=== PATIENT | male | born 2000 ===

== ENCOUNTER 2021-12-18 17:05 | Emergency (ER) | payer OTHER, SELFPAY ==
[2021-12-18 17:09] VITALS: BP 154/87; PULSE 92; RESP 14; TEMP 36.8; O2SAT 98
--- NOTE | 2021-12-18 17:30 | DI.CT_ITS ---
Exam(s) CT HEAD WO EXAM: CT HEAD WO CLINICAL HISTORY: fall skiing, hit head. TECHNIQUE: Imaging Protocol: Axial computed tomography images with coronal and sagittal reformatted images were created and reviewed COMPARISON: No exams were available for comparison FINDINGS: Ventricles and Extra axial spaces: Normal in size and morphology for the patient's age. Hemorrhage: None. Cerebral parenchyma: Normal. Midline shift: None. Brainstem/Cerebellum: Normal. Calvarium: Normal. Visualized Paranasal sinuses/Mastoids: Clear mucous retention cyst right maxillary sinus. Bony septa in both maxillary sinuses. Soft Tissues: Soft tissue swelling left frontal region. Soft tissue swelling around the nose. Minimally displaced nasal fractures and minimally displaced fr acture of the anterior nasal septum.. No orbital fracture. IMPRESSION: No acute intracranial process.Nasal fractures. RADIATION DOSE DELIVERED: 834.89mGy.cm Total DLP DATA REPOSITORY: All CT scans at this facility are submitted to the National Radiology Data Registry (NRDR) Dose Index Registry (DIR) with the [employer] ([employer]). RADIATION OPTIMIZATION: All CT scans at this facility use at least one of these dose optimization te chniques: automated exposure control; mA and/or kV adjustment per patient size (includes targeted exa ms where dose is matched to clinical indication); or iterative reconstruction.
--- NOTE | 2021-12-18 18:18 | DI.VRAD_ITS ---
Addendum created by Axel Swift MD on 12/18/2021 6:44:20 PM EST: There is a nondisplaced nasal bone fracture, best seen on sagittal image 47, series 6. There is mild comminution around the inferior aspect of the fracture, as seen around axial image 6, series 3. There is also a nondisplaced fracture of the anterior aspect of the bony septum in this region best seen on image 7, series 3. There is mild soft tissue swelling superficial to the nasal bone, without defined hematoma. Findings were discussed with JANELLE ALBERTS at 12/18/2021 6:43 PM EST. Initial report created on 12/18/2021 6:16:53 PM EST: PROCEDURE INFORMATION: Exam: CT Head Without Contrast Exam date and time: 12/18/2021 5:36 PM Age: 20 years old Clinical indication: Injury or trauma; Fall; Blunt trauma (contusions or hematomas); Consciousness not specified; Injury date: 12/18/21; Injury details: Ski injury TECHNIQUE: Imaging protocol: Computed tomography of the head without contrast. Radiation optimization: All CT scans at this facility use at least one of these dose optimization techniques: automated exposure control; mA and/or kV adjustment per patient size (includes targeted exams where dose is matched to clinical indication); or iterative reconstruction. COMPARISON: No relevant prior studies available. FINDINGS: Brain: There is no evidence for acute intra-axial or extra-axial hemorrhage. There is no intracranial mass or mass effect. The basilar cisterns are patent. There is normal leon-white differentiation throughout the brain. There is no CT evidence of acute cortical infarct. Cerebral ventricles: The ventricles, cisterns and sulci are normal in size for the patient's age. Paranasal sinuses: There is an 8 mm soft tissue density structure within the anterior aspect of the right maxillary sinus suggesting a small mucous retention cyst. Mastoid air cells: Visualized mastoid air cells are well aerated. Bones/joints: No acute fractures are identified. Soft tissues: There is a focal region of mild soft tissue swelling anterior to the left frontal skull to the left of midline around image 25, series 2, suggesting mild soft tissue contusion. No defined subgaleal hematoma is identified. IMPRESSION: 1. No acute intracranial process identified. 2. Small soft tissue contusion in the anterior left frontal region. No fractures identified Dictated and Authenticated by: Axel Swift MD. Ordering:RITCHIE Martin MD
--- NOTE | 2021-12-18 18:27 | ED.GENADUL_ITS ---
Discharge Plan Disposition Patient Disposition: HOME Condition: Stable Discharge Details Clinical Impression: Nasal bone fracture, Head injury, Fall from snow-skis, initial encounter Primary Care Provider: Unknown,Unknown ED Provider: Mario Schultz Home Meds and New Rx's Prescriptions: No Action No Known Home Meds RF: 0 Discharge Instructions Instructions: Nasal Fracture (ED), Concussion (ED) Additional Instructions: Please avoid consuming alcohol and rest over the next few days. Please take acetaminophen (tylenol) - 650mg every 6 hours by mouth as needed for pain. Replace your helmet. There are likely microfractures in the material and helmet were not provide adequate protection with impact. Please contact your primary care physician to arrange follow-up. Return to the ER immediately for any worsening or new concerning symptoms. Medical Decision Making 20-year-old male who was skiing and lost control and went [place], sustained head injury, did not lose consciousness. Injury happened approximately 5 hours ago. Patient subsequently consumed alcohol and then recently vomited. He denies headache. Patient is neurologically intact. Saturating well no respiratory distress with clear lung sounds. Hemodynamically stable. Abdominal exam is benign. Patient did have trauma to the bridge of his nose and I am concerned about nasal bone fracture. Consider also acute intracranial traumatic hemorrhage given mechanism of injury and vomiting. CT of the head was reviewed and interpreted by radiology: No intracranial hemorrhage, nasal bone fracture with no septal hematoma. Please see report below. Results were discussed with the patient. Plan for discharge with outpatient follow-up. Usual customary discharge instructions were reviewed with the patient. Imaging Data Radiologic Study: Imaging: CT Scan Radiologist's impression: Findings were discussed with MARIO SCHULTZ at 12/18/2021 6:43 PM EST. Initial report created on 12/18/2021 6:16:53 PM EST: PROCEDURE INFORMATION: Exam: CT Head Without Contrast Exam date and time: 12/18/2021 5:36 PM Age: 20 years old Clinical indication: Injury or trauma; Fall; Blunt trauma (contusions or hematomas); Consciousness not specified; Injury date: 12/18/21; Injury details: Ski injury TECHNIQUE: Imaging protocol: Computed tomography of the head without contrast. Radiation optimization: All CT scans at this facility use at least one of these dose optimization techniques: automated exposure control; mA and/or kV adjustment per patient size (includes targeted exams where dose is matched to clinical indication); or iterative reconstruction. COMPARISON: No relevant prior studies available. FINDINGS: Brain: There is no evidence for acute intra-axial or extra-axial hemorrhage. There is no intracranial mass or mass effect. The basilar cisterns are patent. There is normal leon-white differentiation throughout the brain. There is no CT evidence of acute cortical infarct. Cerebral ventricles: The ventricles, cisterns and sulci are normal in size for the patient's age. Paranasal sinuses: There is an 8 mm soft tissue density structure within the anterior aspect of the right maxillary sinus suggesting a small mucous retention cyst. Mastoid air cells: Visualized mastoid air cells are well aerated. Bones/joints: No acute fractures are identified. Soft tissues: There is a focal region of mild soft tissue swelling anterior to the left frontal skull to the left of midline around image 25, series 2, suggesting mild soft tissue contusion. No defined subgaleal hematoma is identified. IMPRESSION: 1. No acute intracranial process identified. 2. Small soft tissue contusion in the anterior left frontal region. No fractures identified HPI General Mode of arrival: ambulatory . Date/Time Provider Initiated Documentation: 12/18/21 17:22 . Limitations to Documentation: no limitations . Information obtained by: patient . HPI Narrative: 20-year-old male, otherwise healthy, presents with chief complaint of head injury. Patient notes he was skiing approximately 5 hours ago and lost control tumbled off the trail [place]. He does not recall striking a tree directly but thinks he gland a tree with his face. He has pain bridge of his nose. He sustained abrasion to his face. He denies headache or loss of consciousness. Just prior to arrival he stood up to get out of the car and vomited. He notes he has been drinking alcohol this afternoon. He denies nausea now. No visual changes. No numbness or tingling. He has no chest pain or shortness of breath. No abdominal pain. Related Data Home Medications Medication Instructions Recorded Confirmed Unknown [No Known Home Meds] 12/18/21 12/18/21 Allergies Allergy/AdvReac Type Severity Reaction Status Date / Time No Known Allergies Allergy Unverified 12/18/21 17:11 General Stated Complaint: HeadInjury VICKY: 2 Review of Systems All systems reviewed & are unremarkable except as noted in HPI and below Cardiovascular Cardiovascular: Denies dyspnea Respiratory Respiratory: Denies dyspnea Gastrointestinal Gastrointestinal: Denies abdominal pain Musculoskeletal Musculoskeletal: Denies back pain Comments: No neck pain PFSH All Active Problems Nasal bone fracture (Acute) Head injury (Acute) Fall from snow-skis, initial encounter (Acute) Social History Smoking/Tobacco Use Status: Current every day Tobacco Type: e-cigarettes Smoking risk assessment performed?: Yes Alcohol Intake: current Alcohol Intake frequency: a few times a week Alcohol type: wine and hard liquor Drug use: Daily Substance use type: marijuana Do you feel safe at home: Yes Do you feel safe in your relationship?: Yes Exam Const General: cooperative and no acute distress HENMT Head: no Monae's sign, no hematomas, no occipital foramen tenderness, no raccoon eyes and No periorbital ecchymosis Ears: TM's normal bilaterally General nose exam: septum normal Face and sinus: tenderness (Bridge of nose with swelling) Mouth: moist mucous membranes Teeth and gingiva: dentition normal Throat: posterior oropharynx normal Eyes EOM: EOM intact bilaterally Neck Neck: trachea midline and supple Resp Auscultation: clear to auscultation bilaterally, no rales, no rhonchi and no wheezes Cardio Rate: regular rate and not tachycardic Rhythm: regular rhythm GI Inspection: normal to inspection and no abdominal wall ecchymosis Palpation: soft, not firm, no guarding, no masses, not rigid and nontender Auscultation: normal bowel sounds Back/Spine/Pelvis Cervical Spine: cervical ROM normal, No cervical spinal tenderness and No step off deformity Thoracic/Lumbar Spine: thoracic and lumbar spine normal to inspection Skin General skin exam: no rashes or lesions noted Neuro General: patient alert, patient awake, patient oriented x3 and tone normal Psych Appearance: grossly normal Mental Status: mental status grossly normal Speech and Movement: speech and movement normal Course Vital Signs Vital signs: Vital Signs Temperature 36.8 C 12/18/21 17:09 Pulse 92 H 12/18/21 17:09 Respiratory Rate 14 12/18/21 17:09 Blood Pressure 154/87 H 12/18/21 17:09 Pulse Oximetry 98 12/18/21 17:09 Temperature 36.8 C 12/18/21 17:09 Temperature Source Temporal Artery Scan 12/18/21 17:09 Pulse 92 H 12/18/21 17:09 Respiratory Rate 14 12/18/21 17:09 Respiratory Effort 12/18/21 18:18 Respiratory Depth Normal 12/18/21 18:18 Respiratory Pattern Normal 12/18/21 18:18 Blood Pressure 154/87 H 12/18/21 17:09 Blood Pressure Position Sitting 12/18/21 17:09 Pulse Oximetry 98 12/18/21 17:09 Oxygen Delivery Method Room Air 12/18/21 17:09 Oxygen Flow Rate 0 12/18/21 17:09 Pain Level 6 12/18/21 17:09 PAWSS Have you Been Recently Intoxicated or Drunk Within the Last 30 days?: Yes Have you Ever Experienced Previous Episodes of Alcohol Withdrawal?: No Have you ever Experienced Withdrawal Seizures?: No Have you ever Experienced Delirium Tremens(DT)s?: No Have you ever undergone Alcohol Rehabilitation Treatment (i.e, inpt ot outpatient treatment programs)?: No Have you ever Experienced Blackouts?: No Have you ever Combined Alcohol with other Downers within the last 90 days?: No Have you ever Combined Alcohol with any other Substance of Abuse during the last 90 days?: No Positive Blood Alcohol level on Presentation? [PCS.BAL]: No Evidence of Increased Autonomic Activity (i.e. HR>120, tremor, sweating, agitation, nausea)?: No Result: 1
[2021-12-18 18:32] VITALS: BP 158/83; PULSE 84; RESP 14; TEMP 36.8; O2SAT 98
== END 2021-12-18 18:44 | disposition home or self-care (01) ==
PROVIDERS: Emergency Provider Student in an Organized Health Care Education/Training Program
DX: S02.2XXA Fracture of nasal bones, initial encounter for closed fracture (principal); S09.8XXA Other specified injuries of head, initial encounter; V00.321A Fall from snow-skis, initial encounter
CPT/HCPCS: 99284; 70450; 99283